=== PATIENT | female | born 1980 | race African-American/Black ===

== ENCOUNTER 2019-05-03 07:03 | Observation (INO) | payer BC, SELFPAY ==
[2019-05-03] VITALS (7 sets, daily range): BP systolic 120–157; BP diastolic 68–105; PULSE 67–84; RESP 12–16; TEMP 36.4–37.6; O2SAT 98–100; BMI 31.4
--- NOTE | ~2019-05-03 | MR_ITS ---
EXAMINATION: MR MRCP wo con/w 3D wo ind pp DATE: 05/04/2019 10:16 INDICATION: Gallstones, epigastric abdominal pain TECHNIQUE: Magnetic resonance imaging (MRI) of the abdomen was performed without intravenous contrast . Sequences included coronal T2-weighted SS-FSE ARC, coronal T2-weighted FS SS-FSE, coronal T2-weight ed 2D FS FIESTA, Water:Coronal LAVA-Flex, sagittal T2-weighted SS-FSE ARC, axial SSFSE ARC, axial 3D DualEcho, axial DWI B=600, axial T1-weighted LAVA, FAT:Coronal LAVA-Flex, and coronal in and opposed phase LAVA-Flex. Thick-slab T2-weighted FRFSE-XL images were obtained for magnetic resonance cholangi opancreatography (MRCP). Maximum intensity projection 3-D reconstructions of the volumetric data were created by the technologist. COMPARISON: None. FINDINGS: ABDOMEN MRI: Within the limitations of noncontrast examination, the liver, spleen, pancreas, and adre nal glands are normal. There are multiple stones in the gallbladder. There is a small amount of peric holecystic fluid. There is a 2.3 cm proteinaceous cyst of the right kidney. A 1.3 cm cyst is present in the left kidney. There are no pathologically enlarged abdominal lymph nodes. No dilated loops of b owel are identified. There is a small amount of fluid in the cul-de-sac, likely physiologic. ABDOMEN MRCP: There is no intrahepatic or extrahepatic biliary dilatation. No stones or stricture of the common bile duct are identified. The pancreatic duct is normal in course and caliber. IMPRESSION: 1. Cholelithiasis and pericholecystic fluid, likely acute cholecystitis. No biliary dilatation, yanet docholithiasis, or biliary stricture. Reviewed, dictated and finalized at location A. MILL OPERATOR HELPER IMPRESSION: 1. Cholelithiasis and pericholecystic fluid, likely acute cholecystitis. No lynsey iary dilatation, choledocholithiasis, or biliary stricture.
--- NOTE | ~2019-05-03 | US_ITS ---
EXAMINATION: US abdomen limited DATE: 05/03/2019 08:01 INDICATION: Epigastric abdominal pain. TECHNIQUE: Multiple grayscale and Doppler ultrasound images of the abdomen were obtained. COMPARISON: None FINDINGS: The visualized portions of the head and body of the pancreas are normal. The liver is genoveva l without focal lesion. There is normal flow in main portal vein. The gallbladder is distended and co ntains gallstones. No gallbladder wall thickening. There is a positive sonographic Horne sign. The c ommon duct is normal and measures 6 mm. IMPRESSION: 1. Distended gallbladder with gallstones and positive sonographic Horne sign, but no gallbladder wal l thickening. These findings are indeterminate for acute cholecystitis. Consider hepatobiliary scinti graphy. Reviewed, dictated and finalized at location A. OF [employer]ES [employer]OMOT[employer] IMPRESSION: 1. Distended gallbladder with gallstones and positive sonographic Horne sign, but no gallbladder wall thickening. These findings are indeterminate for acute cholecystitis. Consider hepatobiliary scintigraphy.
--- NOTE | 2019-05-03 07:29 | ED.GENADULT ---
HPI - General Adult General Chief complaint: Abdominal Pain Stated complaint: BAD GAS FROM PIZZA HUT Time Seen by Provider: 05/03/19 07:14 History of Present Illness HPI narrative: Patient is a 38 y/o female complaining of epigastric abdominal starting 2 days ago. She states that she ate some pizza 3 days ago and it may have caused it. She describes the pain as sharp, and rates it as 8/10. She states that eating appears to aggravate the pain. She had some diarrhea initially, but the diarrhea has resolved. She denies any fever, vomiting or dysuria. Related Data Allergies Allergy/AdvReac Type Severity Reaction Status Date / Time Penicillins Allergy Unknown Verified 05/03/19 07:35 Review of Systems Constitutional: Constitutional: Denies chills, Denies fever(s), Denies headache(s) and Denies weakness Eyes: Eyes: Denies blurry vision ENT: Denies headache(s) and Denies neck pain Cardiovascular: Cardiovascular: Denies chest pain and Denies dyspnea Respiratory: Respiratory: Denies cough and Denies dyspnea Gastrointestinal: Gastrointestinal: Reports abdominal pain, Reports diarrhea (resolved), Denies nausea and Denies vomiting Genitourinary: Genitourinary: Denies hematuria and Denies dysuria Musculoskeletal: Musculoskeletal: Denies back pain and Denies neck pain Neurologic: Denies headache(s) and Denies weakness Exam Const: General: no acute distress and well developed Orientation/consciousness: oriented to person, oriented to place, oriented to time and patient oriented x3 HENMT: Head: normocephalic Ears: external ears normal General nose exam: Normal external nose present Eyes: General: appearance normal, both eyes and all related structures Conjunctivae: conjunctivae normal Neck: Neck: normal visual inspection and full ROM Chest: Chest palpation & inspection: normal inspection of the chest and no tenderness Resp: Effort & Inspection: normal respiratory effort Auscultation: clear to auscultation bilaterally Cardio: Rate: regular rate Rhythm: regular rhythm GI: GI Palp: Yes abdominal tenderness (epigastric and RUQ) and Yes Soft to palpation Skin: General skin exam: normal color and turgor normal Neuro: General: oriented to person, oriented to place, oriented to time and patient oriented x3 Cognition (Neuro): normal cognition Extrem: General: normal to inspection, full ROM and no pedal edema Psych: Appearance: grossly normal Mental Status: mental status grossly normal Affect: normal affect Course Consultations Consultation #1: Discussed with Dr. Amanda Medina, who recommends MRCP and surgery consult. Date: 05/03/19 Time: 09:15 Consultation #2: Discussed with Dr. Hoffmann, who agrees admit. Date: 05/03/19 Time: 09:27 Consultation #3: Discussed with Dr. Bonilla, who agrees to consult. Recommends keeping patient NPO. Date: 05/03/19 Time: 09:41 Vital Signs Vital signs: Vital Signs Temperature 37.1 C 05/03/19 08:01 Pulse Rate 67 05/03/19 08:01 Respiratory Rate 16 05/03/19 08:01 Blood Pressure 155/105 H 05/03/19 08:01 Pulse Oximetry 98 05/03/19 08:01 Temperature 37.1 C 05/03/19 08:01 Pulse Rate 67 05/03/19 08:01 Respiratory Rate 16 05/03/19 08:01 Blood Pressure 155/105 H 05/03/19 08:01 Pulse Oximetry 98 05/03/19 08:01 Medical Decision Making Vital Signs Vital Signs: Vital Signs Temperature 37.1 C 05/03/19 08:01 Pulse Rate 67 05/03/19 08:01 Respiratory Rate 16 05/03/19 08:01 Blood Pressure 155/105 H 05/03/19 08:01 Pulse Oximetry 98 05/03/19 08:01 Temperature 37.1 C 05/03/19 08:01 Pulse Rate 67 05/03/19 08:01 Respiratory Rate 16 05/03/19 08:01 Blood Pressure 155/105 H 05/03/19 08:01 Pulse Oximetry 98 05/03/19 08:01 Lab Data Result diagrams: 05/03/19 08:37 05/03/19 08:37 Labs: Lab Results 05/03/19 05/03/19 05/03/19 Range/Units 08:37 08:37 08:37 WBC 3.0 L (4.5-10.0) K/mm3 RBC
[2019-05-03] MEDS: KETOROLAC 30 MG/ML VIAL (*BKC) IV PUSH (08:36)
[2019-05-03] MEDS: SODIUM CHLORIDE 0.9% IV 1,000 ML 999 ML IV CONT (08:36)
[2019-05-03 08:52] LABS: Eosinophils Absolute Auto 0.2 K/mm3 (0-0.3); Hematocrit 33.9 % (37.0-47.0); Hemoglobin 10.9 g/dL (12.0-15.0); Immature Granulocyte Absolute 0.01 K/mm3 (0.00-0.031); Immature Granulocyte Percent A 0.3 % (0-0.5); Lymphocytes Absolute Auto 0.64 K/mm3 (0.9-3.2); Lymphocytes Percent Auto 21.2 % (18.3-44.2); Mean Corpuscular HGB Conc 32.2 g/dl (32-36); Mean Corpuscular Hemoglobin 26.8 pg (26-34); Mean Corpuscular Volume 83.5 fl (80-100); Mean Platelet Volume 11.4 fl (7.4-10.4); Monocytes Absolute Auto 0.6 K/mm3 (0.1-0.6); Monocytes Percent Auto 18.2 % (2.6-8.5); Neutrophils Absolute Auto 1.6 K/mm3 (1.3-6.7); Neutrophils Percent Auto 54.3 % (45.5-73.1); Platelet Count Result 275 k/mm3 (150-375); Red Blood Count 4.06 M/mm3 (4.2-5.4)
[2019-05-03 08:56] LABS: Add Urine Microscopic? YES; Appearance Urine Clear (Clear); Bacteria Urine Trace /hpf; Bilirubin Urine Negative (Negative); Blood Urine 2+ (Negative); Color Urine Yellow (Yellow); Glucose Urine UA Negative (Negative); Ketones Urine Negative (Negative); Leukocyte Esterase Ur Negative LEU/UL (Negative); Mucus Urine Rare /lpf; Nitrate Urine Negative (Negative); Protein Urine Negative (Negative); RBC Urine 21-50 /hpf (0-2); Specific Grav Ur 1.014 (1.001-1.035); Squamous Epithelial Cell Urine Many /hpf (Few); WBC Urine 0-3 /hpf
[2019-05-03 09:07] LABS: Alanine Aminotransferase 655 U/L (4-35); Albumin Level 4.2 g/dL (3.5-5.1); Alkaline Phosphatase 122 U/L (38-126); Aspartate Amino Transferase 591 U/L (14-36); Bilirubin,Total 1.7 mg/dL (0.2-1.3); Blood Urea Nitrogen 6 mg/dL (7-17); Calcium 8.8 mg/dL (8.4-10.2); Carbon Dioxide 26 mmol/L (22-30); Chloride 105 mmol/L (98-107); Estimated Glomerular Filt Rate > 60; Glucose 114 mg/dL (65-105); Lipase 54 U/L (23-300); Sodium 139 mmol/L (137-145)
[2019-05-03 10:14] LABS: Hepatitis B Surface Antigen Negative (Negative)
[2019-05-03 10:19] LABS: HAV RESULT Negative (Negative); Hepatitis B Core IgM Result Negative (Negative)
--- NOTE | 2019-05-03 10:26 | PC.NURSE ---
Per Deepali from 3rd Med/Surg stated that RN would call RN back to receive report for Pt. training project manager aware.
[2019-05-03 10:31] LABS: Hepatitis C Virus Antibody Negative (Negative)
[2019-05-03] MEDS: SODIUM CHLORIDE 0.9% IV 1,000 ML 125 ML IV CONT (12:14)
--- NOTE | 2019-05-03 14:00 | PM.IMHP ---
H&P: HPI History of Present Illness Chief complaint: Abdominal pain. Narrative: Dasia Ng is a 38 year old female with history of cholelithiasis and choledocholithiasis who presented to the emergency department earlier this morning for evaluation of abdominal pain. She had cheese sticks and honey barbecue wings on Monday evening for dinner, and the next morning at work she developed what she thought were severe ?gas pains? mainly in the epigastric region. Not long thereafter, she had several episodes of diarrhea that she describes as dark green and watery in nature. Thereafter, the abdominal discomfort did seem to ease up, but has returned intermittently since that time. It is mainly in the epigastrium, but will radiate somewhat through to the back, and she did demonstrate a positive Horne sign today during ultrasound. Her appetite has not been great, and when she has had an appetite, she admits that she has really just been eating chips and/or cookies. She has not had fever, chills, or sweats. She has had some nausea but no vomiting. No loose stools for > 24 hours. It is noted that she was taken for an MRCP earlier today, but felt very short of breath and anxious and the procedure was aborted at that time. She has had several MRIs in the past, has never had similar symptoms. Review of Systems Review of Systems: Narrative: Twelve systems are reviewed with pertinent positives and negatives as per HPI. No fever, chills, or sweats. Denies cold and flu symptoms. She has decreased visual acuity in the right eye since she had optic neuritis in 2002. Brain MRI at that time did not demonstrate any abnormalities. She has not had a recurrence of such and denies focal weakness and paresthesias. Last menstrual period was April 18, 2019. No GERD or history of peptic ulcers. No chest pain, pleuritic pain, orthopnea, or lower extremity edema. Her blood pressure has been elevated in the past, but she has never been on antihypertensives. She denies melena and hematochezia. Except as documented, all other systems were reviewed and are negative. [facility] Past Medical History Medical History (Updated 05/03/19 @ 15:52 by Jazz Claros PA-C) Choledocholithiasis Status post ERCP around 2014. Cholelithiasis Optic neuritis Right-sided 2002. MRI unremarkable. Surgical History Surgical History (Updated 05/03/19 @ 15:46 by Jazz Claros PA-C) History of myomectomy Fibroid removed at the time of the . Status post section Family History Family History (Updated 05/03/19 @ 15:47 by Jazz Claros PA-C) Sibling Sarcoidosis Mother Hypertension Father Carcinoma of colon Social History Social History (Updated 05/03/19 @ 15:47 by Jazz Claros PA-C) Social History: The patient lives in [place] with her and 39 in 5-year-old children. 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 She designates her , Bhavesh Lay, as her surrogate decision maker and she wishes to be a full code. She is a lifelong nonsmoker and denies alcohol and drug use. Meds Home Medications and Allergies Allergies Allergy/AdvReac Type Severity Reaction Status Date / Time Penicillins Allergy Unknown Verified 05/03/19 07:35 Vital Signs Vital Signs - 24 hr 05/03/19 08:01 05/03/19 11:00 05/03/19 11:26 Temperature 98.8 F 97.9 F Pulse Rate 67 68 82 Respiratory Rate 16 12 16 Blood Pressure 155/105 H 152/98 H 157/100 H Pulse Oximetry 98 99 100 Exam Narrative: Exam Narrative: General: A well-developed, well-nourished female sitting up in bed in no acute distress. HEENT: Normocephalic, atraumatic. PERRL, EOMI. Sclerae anicteric. She is wearing corrective lenses. oral mucosa moist. Oropharynx clear. Neck: Supple. Respiratory: Lungs are clear to auscultation bilaterally. Cardiovascular: Regular rate and rhythm with S1-S2. No murmur, rub, or gallop. Gastrointestinal: Abdomen is soft
--- NOTE | 2019-05-03 15:02 | PM.CNGS ---
Assessment and Plan Assessment and plan (1) Symptomatic cholelithiasis: Code(s): K80.20 - Calculus of gallbladder without cholecystitis without obstruction Status: Acute Assessment and Plan: Patient has evidence of cholelithiasis, but she also has elevated liver enzymes. She has had a prior history of choledocholithiasis and underwent ERCP 5 years ago. GI has been consulted, and MRCP has been ordered. Will await results of MRCP for further recommendations. She has refused surgery in the past, and she states that she would like to try dietary modifications if MRCP is normal. I discussed that continued attacks like this are more likely to happen than not. Ultimately laparoscopic cholecystectomy would be recommended. Will discuss the options further with the patient after reviewing the MRCP. (2) Abnormal LFTs (liver function tests): Code(s): R94.5 - Abnormal results of liver function studies Status: Acute History of Present Illness Consult details Consult date: 05/03/19 Narrative: This is a 38-year-old woman who presented to the emergency department this morning with complaints of upper abdominal pain for the past 3 days. She had eaten [employer] pizza and noticed the pain shortly after this. She felt like most of this pain was gas pains, but this did not resolve with drinking kemar noah or giving it time. She presented to the ER for further evaluation. She states that this pain has been mild compared to some previous attacks. She had a severe attack of pain 5 years ago. She states that she was found to have choledocholithiasis at that time and underwent ERCP. Laparoscopic cholecystectomy was recommended to the patient at that time, however she chose not to proceed with surgery. She has not had many problems since 5 years ago until now. She states that her urine has been slightly darker, but she also states she has not been drinking much water. She denies any other associated symptoms. Review of Systems Review of Systems: All systems reviewed & are unremarkable except as noted in HPI and below Eyes: Eyes: Denies change in vision ENT: Denies hearing loss, Denies neck pain and Denies sore throat Cardiovascular: Cardiovascular: Denies chest pain and Denies dyspnea Respiratory: Respiratory: Denies cough, Denies dyspnea and Denies wheezing Gastrointestinal: Gastrointestinal: Reports as per HPI Genitourinary: Genitourinary: Denies hematuria and Denies dysuria Musculoskeletal: Musculoskeletal: Denies arthralgias, Denies joint swelling and Denies neck pain Allergic/Immunologic: Allergic/Immunologic: Denies wheezing Meds Home Medications and Allergies Allergies Allergy/AdvReac Type Severity Reaction Status Date / Time Penicillins Allergy Unknown Verified 05/03/19 07:35 Vital Signs Vital Signs - 24 hr 05/03/19 08:01 05/03/19 11:00 05/03/19 11:26 Temperature 37.1 C 36.6 C Pulse Rate 67 68 82 Respiratory Rate 16 12 16 Blood Pressure 155/105 H 152/98 H 157/100 H Pulse Oximetry 98 99 100 Exam Const: General: alert; No acute distress Orientation/consciousness: patient oriented x3 Limitations: no limitations HENMT: Head: normocephalic and atraumatic Ears: hearing grossly normal bilaterally General nose exam: Normal external nose present and Normal nares present Mouth: Yes Normal oral and palatal mucosa present and Yes moist mucous membranes Eyes: General: appearance normal, both eyes and all related structures Conjunctivae: conjunctivae normal Sclera: sclerae normal Pupils: Equal, round and reactive pupils present EOM: EOMs intact bilaterally Neck: Neck: normal visual inspection, full ROM, no lymphadenopathy, supple and no JVD Lymphatic: no lymphadenopathy noted Chest: Chest palpation & inspection: normal inspection of the chest Resp: Effort & Inspection: normal respiratory effort and able to speak in complete sentences Auscultation: clear to auscultation bilaterally Perc
--- NOTE | 2019-05-03 16:30 | ADMGEN ---
This patient, Dasia Ng, was admitted to 3 [facility] Surg Room 310-01. Patient/family oriented to hospital policies and general routines including ID bracelet, bed and alarms, visiting hours, pain management, procedures, bathroom and other care routines, personal items, smoking policy, room service/diet, and visiting hours. Valuables list has been completed. Information on how to activate the Rapid Response Team has been discussed. Patient/Family are encouraged to report perceived risks to care and to ask questions if they do not understand what they are told or what they should do. 1115 Here in bed from E.R., awake, alert, and oriented times four, no complaints, call lozoya within reach.
[2019-05-03] MEDS: SODIUM CHLORIDE 0.9% IV 1,000 ML 85 ML IV CONT (20:21)
[2019-05-04 06:00] VITALS: BP 138/75; PULSE 74; RESP 18; TEMP 37; O2SAT 99
[2019-05-04] MEDS: ALPRAZOLAM 0.25 MG TABLET PO (06:16)
[2019-05-04] MEDS: SODIUM CHLORIDE 0.9% IV 1,000 ML 85 ML IV CONT (06:19)
[2019-05-04 06:52] LABS: Basophils Percent Auto 0.8 % (0.2-1.2); Eosinophils Absolute Auto 0.3 K/mm3 (0-0.3); Eosinophils Percent Auto 8.8 % (0-4.4); Hematocrit 32.5 % (37.0-47.0); Hemoglobin 10.7 g/dL (12.0-15.0); Lymphocytes Absolute Auto 1.09 K/mm3 (0.9-3.2); Lymphocytes Percent Auto 29.1 % (18.3-44.2); Mean Corpuscular HGB Conc 32.9 g/dl (32-36); Mean Corpuscular Hemoglobin 27.4 pg (26-34); Mean Corpuscular Volume 83.1 fl (80-100); Mean Platelet Volume 10.6 fl (7.4-10.4); Monocytes Absolute Auto 0.5 K/mm3 (0.1-0.6); Monocytes Percent Auto 13.1 % (2.6-8.5); Neutrophils Absolute Auto 1.8 K/mm3 (1.3-6.7); Neutrophils Percent Auto 48.2 % (45.5-73.1); Platelet Count Result 257 k/mm3 (150-375); Red Blood Count 3.91 M/mm3 (4.2-5.4); Red Cell Distribution Width 14.2 % (11.5-14.5); White Blood Count 3.7 K/mm3 (4.5-10.0)
[2019-05-04 07:13] LABS: Alanine Aminotransferase 449 U/L (4-35); Albumin Level 3.8 g/dL (3.5-5.1); Alkaline Phosphatase 128 U/L (38-126); Aspartate Amino Transferase 194 U/L (14-36); Bilirubin,Total 0.9 mg/dL (0.2-1.3); Blood Urea Nitrogen 6 mg/dL (7-17); Calcium 8.6 mg/dL (8.4-10.2); Carbon Dioxide 21 mmol/L (22-30); Chloride 107 mmol/L (98-107); Estimated CRCL calculation 101 ml/min; Estimated Glomerular Filt Rate > 60; Glucose 84 mg/dL (65-105); Potassium 3.6 mmol/L (3.4-5.0); Sodium 141 mmol/L (137-145)
--- NOTE | 2019-05-04 10:12 | WPDGICN ---
Assessment and Plan Assessment and plan (1) Symptomatic cholelithiasis: Code(s): K80.20 - Calculus of gallbladder without cholecystitis without obstruction Status: Acute Assessment and Plan: she had ERCP 5 years ago, now symptomatic again and had elevated liver enzymes. MRCP was done and pending result but noted liver enzymes and bilirubin trending down, probably stone passed. Ideally she will need cholecystectomy but she is reluctant for now (most likely will have similar attacks without surgery), surgery is on board. (2) Abnormal LFTs (liver function tests): Code(s): R94.5 - Abnormal results of liver function studies Status: Acute Assessment and Plan: trending noemy, monitor. hepatitis panel negative If dilated bile duct or choledocholithiasis then may need ERCP (pending mrcp) (3) Upper abdominal pain: Code(s): R10.10 - Upper abdominal pain, unspecified Status: Acute Assessment and Plan: much better, ok to start cl diet GI Consult Note Consult date/time: 05/04/19 10:12 Reason for consult: cholelithiasis, elevated lft's HPI: Dasia Ng is a 38 year old female history of cholelithiasis and choledocholithiasis s/p ERCP about 5 years ago in [place] with removal of stones, patient did not get cholecystectomy because personal decision (she says that has not had any attack until now) She came to ER with new onset of upper abdominal pain for almost 3 days triggered after she ate pizza then worse with chips and cookies, pain was intermittent but eventually worsened, also noted diarrhea described as dark green therefore she came in to the hospital. She was found to have elevated liver enzymes with cholestatic pattern, repeat enzymes today trending down and she is feeling much better. RUQ ultrasound showed cholelithiasis with distended GB and positive mullen sign. MRCP is pending. Review of Systems Constitutional: Constitutional: Denies headache(s) and Denies weakness Eyes: Eyes: Denies blurry vision ENT: Reports Normal hearing present, Denies headache(s) and Denies neck pain Cardiovascular: Cardiovascular: Denies chest pain and Denies dyspnea Respiratory: Respiratory: Denies dyspnea Gastrointestinal: Gastrointestinal: Reports abdominal pain, Reports bloating and Reports diarrhea Genitourinary: Genitourinary: Denies dysuria Musculoskeletal: Musculoskeletal: Denies neck pain Integumentary/Breasts: Skin/Breast: Denies dry skin Neurologic: Reports Normal hearing present, Denies headache(s) and Denies weakness Psychiatric: Psychiatric: Denies anxiety Endocrine: Endocrine: Denies change in body appearance Hematologic/Lymphatic: Hematologic/Lymphatic: Denies easy bleeding Allergic/Immunologic: Allergic/Immunologic: Denies urticaria PMFSH Past Medical History Medical History (Updated 05/04/19 @ 10:17 by Arslan Sargent MD) Choledocholithiasis Status post ERCP around 2014. Cholelithiasis Optic neuritis Right-sided 2002. MRI unremarkable. Upper abdominal pain Surgical History Surgical History (Updated 05/03/19 @ 15:46 by Jazz Claros PA-C) History of myomectomy Fibroid removed at the time of the . Status post section Family History Family History (Updated 05/03/19 @ 15:47 by Jazz Claros PA-C) Sibling Sarcoidosis Mother Hypertension Father Carcinoma of colon Social History Social History (Updated 05/03/19 @ 15:47 by Jazz Claros PA-C) Social History: The patient lives in [place] with her and 39 in 5-year-old children. 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 She designates her , Bhavesh Lay, as her surrogate decision maker and she wishes to be a full code. She is a lifelong nonsmoker and denies alcohol and drug use. Smoking status: Never smoker Second hand tobacco smoke exposure: No Alcohol intake: never Substance use: current Spiritual care concerns: No Me
[2019-05-04 14:00] VITALS: BP 140/87; PULSE 79; RESP 20; TEMP 36.9; O2SAT 100
--- NOTE | 2019-05-04 15:17 | PM.PNGS ---
Progress Note: A&P Assessment and Plan (1) Acute calculous cholecystitis: Code(s): K80.00 - Calculus of gallbladder with acute cholecystitis without obstruction Status: Acute Assessment and Plan: Patient's symptoms have resolved. I discussed with her that she is more likely to continue having episodes like this, but she does not want to have surgery at this time. I have recommended low fat diet to try to prevent gallbladder events. I have also discussed that without surgery, she has a risk of having recurrent CBD obstruction which can lead to other potential complications. Patient is still refusing surgery at this time. OK to discharge from surgery [facility]. Instructed patient to call office or return to ED if symptoms are returning. (2) Abnormal LFTs (liver function tests): Code(s): R94.5 - Abnormal results of liver function studies Status: Acute Subjective Subjective Date/Time Seen: 05/04/19 15:17 Patient feeling better. No abdominal pain. No fevers/nausea/vomiting. Exam GI: Inspection: non-distended GI Palp: Yes Soft to palpation, No Tenderness to palpation present (GI), No Guarding due to palpation present (GI) and No Rebound tenderness present Auscultation: normal bowel sounds Objective Data Vital Signs Vital Signs: Vital Signs - 24 hr 05/03/19 16:00 05/03/19 21:36 05/04/19 06:00 Temperature 37.6 C 36.9 C 37.0 C Pulse Rate 70 71 74 Respiratory Rate 16 16 18 Blood Pressure 141/82 H 126/81 138/75 Pulse Oximetry 100 100 99 Intake/Output Intake/Output: Intake & Output 05/01/19 05/02/19 05/03/19 05/04/19 23:59 23:59 23:59 23:59 Intake Total 1999 1060 Output Total 400 1050 Balance 1600 10 Meds/Results Medications: Active Medications Generic Name Dose Route Start Last Admin Trade Name Freq PRN Reason Stop Dose Admin Sodium Chloride 1,000 mls @ 85 mls/hr 05/03/19 09:30 05/04/19 06:19 Normal Saline Iv IV CONT 85 mls/hr .[id number] CARL Administration Radiology Results: ITS Impressions Abdomen Ultrasound 05/03/19 08:03 IMPRESSION: 1. Distended gallbladder with gallstones and positive sonographic Horne sign, but no gallbladder wall thickening. These findings are indeterminate for acute cholecystitis. Consider hepatobiliary scintigraphy. MRCP 05/04/19 12:57 IMPRESSION: 1. Cholelithiasis and pericholecystic fluid, likely acute cholecystitis. No biliary dilatation, choledocholithiasis, or biliary stricture. Labs Labs: Laboratory Results - last 24 hr 05/04/19 05/04/19 06:39 06:39 WBC 3.7 L RBC 3.91 L Hgb 10.7 L Hct 32.5 L MCV 83.1 MCH 27.4 MCHC 32.9 RDW 14.2 Plt Count 257 MPV 10.6 H Immature Gran % (Auto) 0.0 Neut % (Auto) 48.2 Lymph % (Auto) 29.1 [place] % (Auto) 13.1 H Eos % (Auto) 8.8 H Baso % (Auto) 0.8 Lymph # (Auto) 1.09 [place] # (Auto) 0.5 Eos # (Auto) 0.3 Baso # (Auto) 0.0 Abs Immat Gran (auto) 0.00 Absolute Neuts (auto) 1.8 Absolute Nucleated RBC 0.0 Nucleated RBC % 0.0 Sodium 141 Potassium 3.6 Chloride 107 Carbon Dioxide 21 L BUN 6 L Creatinine 0.70 Estim Creat Clear Calc 101 Estimated GFR > 60 Glucose 84 Calcium 8.6 Total Bilirubin 0.9 AST 194 H ALT 449 H Alkaline Phosphatase 128 H Total Protein 7.0 Albumin 3.8
--- NOTE | 2019-05-04 17:08 | PM.DS ---
DS: Diagnosis Admitting Diagnosis Admitting Diagnosis: Calculus of gallbladder without cholecystitis without obstruction DS: Summary Hospital Course Reason for hospitalization: Abdominal pain Hospital Course: 38-year-old female with known chronic cholelithiasis and prior cholecystitis and choledocholithiasis treated with ERCP presented with recurrent abdominal discomfort. Found to have elevated liver enzymes but no dilated bile duct on MRCP. Saw domestic travel consultant but declined surgery at this time. She wants to try low-fat diet for a while. She pleasures to return if her symptoms recur even with adherence to her diet. By day of discharge she was tolerating food. Denied pain. Up and about out difficulty. Wished to go home. Time Spent with Patient Time attestation: Total time spent providing and/or coordinating discharge services: Exam Narrative: Exam Narrative: HEENT: EOMI, PERRL, pharyngeal mucosa pink and intact NECK: No JVD CHEST: Clear to auscultation. Normal effort. HEART: NL S1/S2, regular, no murmur ABDOMEN: BS+, soft, nontender, no mass, no bruits EXTREMITIES: No cyanosis, edema, or clubbing NEUROLOGIC: CN intact and symmetric to inspection. MUSCULOSKELETAL: Tone and strength symmetric. PSYCH: Alert. Oriented to person, place, and time. DS: Data Data Completed and Pending Labs on day of discharge: Labs from last 24 hours 05/04/19 05/04/19 06:39 06:39 WBC 3.7 L RBC 3.91 L Hgb 10.7 L Hct 32.5 L MCV 83.1 MCH 27.4 MCHC 32.9 RDW 14.2 Plt Count 257 MPV 10.6 H Immature Gran % (Auto) 0.0 Neut % (Auto) 48.2 Lymph % (Auto) 29.1 [place] % (Auto) 13.1 H Eos % (Auto) 8.8 H Baso % (Auto) 0.8 Lymph # (Auto) 1.09 [place] # (Auto) 0.5 Eos # (Auto) 0.3 Baso # (Auto) 0.0 Abs Immat Gran (auto) 0.00 Absolute Neuts (auto) 1.8 Absolute Nucleated RBC 0.0 Nucleated RBC % 0.0 Sodium 141 Potassium 3.6 Chloride 107 Carbon Dioxide 21 L BUN 6 L Creatinine 0.70 Estim Creat Clear Calc 101 Estimated GFR > 60 Glucose 84 Calcium 8.6 Total Bilirubin 0.9 AST 194 H ALT 449 H Alkaline Phosphatase 128 H Total Protein 7.0 Albumin 3.8 Discharge Plan Discharge Attending physician on discharge: Homero Love Consulting providers: Jaja Chavira ; Arslan Sargent ; Maurice Bonilla Discharging Clinician: Homero Love Patient Disposition: Home, Self-Care Activity: as tolerated Diet: low fat Discharge Instructions: Return to the emergency department if your pain recurs. Patient Instructions: Antibiotic Form Stand Alone Forms: General Discharge Information Follow-up/Referrals: Maurice Bonilla DO [Physician] - Call for Appointment Discharge Medications: Continued No Home Medications RF: 0 Date of admission: 05/03/19 09:29 Primary Care Provider: PHYSICIAN,[employer]AIGHTENER Admitting Provider: Rudolph Hoffmann Attending physician on admission: Rudolph Hoffmann Condition: Stable
== END 2019-05-04 18:00 | disposition home or self-care (01) ==
LOC: ANHED 09:34 → ANH3MEDSUR 10:32
PROVIDERS: Physician Assistant; Admitting Provider Family Medicine; Emergency Provider Emergency Medicine; Visit Provider Internal Medicine
DX: K80.00 Calculus of gallbladder with acute cholecystitis without obstruction (principal); R74.8 Abnormal levels of other serum enzymes; R03.0 Elevated blood-pressure reading, without diagnosis of hypertension; D64.9 Anemia, unspecified; Z53.29 Procedure and treatment not carried out because of patient's decision for other reasons; Z88.0 Allergy status to penicillin
CPT/HCPCS: 36415; 74181; 76376; 76705; 80053; 80074; 81001; 81025; 83690; 85025; 87081; 96361; 96374; 99285; A9270; G0378; J1885; J7030